=== PATIENT | female | born 1995 | race Caucasian/White ===

== ENCOUNTER → 2023-01-30 10:15 | Outpatient (BNVA) | payer MEDICAID, SELFPAY | PROVIDERS: Family Provider Family Medicine; Visit Provider Obstetrics & Gynecology | DX: Z00.00 Encounter for general adult medical examination without abnormal findings (principal) | CPT/HCPCS: 80053; 84443; 85025 ==

== ENCOUNTER → 2023-02-08 10:30 | Outpatient (BNVA) | payer MEDICAID, SELFPAY | PROVIDERS: Family Provider Family Medicine; Visit Provider Obstetrics & Gynecology | DX: Z01.419 Encounter for gynecological examination (general) (routine) without abnormal findings (principal) | CPT/HCPCS: 88175 ==

== ENCOUNTER 2024-03-06 01:26 | Inpatient (IN) | payer MEDICAID, SELFPAY ==
[2024-03-06] VITALS (15 sets, daily range): BP systolic 106–132; BP diastolic 58–82; PULSE 68–93; RESP 16; TEMP 36.4–36.8; O2SAT 97–98; BMI 27.6
--- NOTE | 2024-03-06 01:02 | P.HP_ITS ---
Providers/Chief Complaint Primary Care Provider: Rafal Atwood MD Chief Complaint: contractions HPI MEDICAL STAFF SERVICES MANAGER History of Present Illness Yuli Maldonado is a 29 year old female that presented at 40 weeks with rupture membranes. Patient states that she is jannte about every 3 to 5 minutes. Patient's initial evaluation showed 5 cm dilation which is a significant change from earlier today. Patient has had an uncomplicated . Patient is GBS unknown. Present Details : 3 Para: 2 Dating criteria OB: based on 1st trimester US only care: good care Ultrasounds: normal 1st trimester US and normal mid trimester US Obstetrical complications: none Medical complications OB: none Labs Blood type OB HPI: A (+) positive Rubella: Immune RPR: Negative GBS: Unknown HBsAG: Negative Review of Systems General: Reports: 10 or more systems reviewed and unremarkable except in HPI and below Medications/Allergies Home Medications Medication Instructions Recorded Confirmed Last Taken Type acetaminophen 325 mg tablet 325 mg PO QID PRN 10/19/20 02/08/23 Unknown History (Tylenol) albuterol sulfate 90 mcg/actuation 2 inh inhalation Q6H PRN 10/19/20 02/08/23 Unknown History breath activated powder inhaler Allergies Allergy/AdvReac Type Severity Reaction Status Date / Time No Known Allergies Allergy Verified 02/08/23 10:14 PFSH MEDICAL STAFF SERVICES MANAGER PFSH: Medical History (Reviewed 02/08/23 @ 10:15 by Ernestina Elkins [facility]) Pelvic pain Family History (Updated 01/30/23 @ 09:28 by Blanca Fernando) Grandmother Colon cancer Maternal Diabetes Great Grandmother/Maternal Mother Stroke Denies family history of Ovarian cancer Heart disease Breast cancer Hypertension Uterine cancer Thyroid disease Other Female Reproductive History: Hx Age of Menarche: 10 History History History 3 Term 2 0 Miscarriages/Ectopic 0 Living Children 2 Physical Exam Const: COMMON NORMALS: no acute distress, healthy appearing, alert and well nourished Resp: COMMON NORMALS: normal respiratory effort and No retractions Cardio: COMMON NORMALS: no JVD, regular rate and regular rhythm GI: OTHER: Gravid uterus Back/Pelvis: COMMON NORMALS: thoracic and lumbar spine normal to inspection Extremity: COMMON NORMALS: no clubbing, cyanosis or edema Neuro: COMMON NORMALS: moves all extremities, no focal motor deficits and no sensory deficits noted Psych: COMMON NORMALS: mental status grossly normal and cooperative Results Labs OB ([facility]): Hct 37.2 % (37.0-47.0) 01/30/23 Hgb 12.0 g/dL (11.5-15.3) 01/30/23 Plt Count 342 10^3/cmm (130-400) 01/30/23 TSH 2.31 uIU/mL (0.27-4.20) 01/30/23 Pap Smear Interpret See note A 02/08/23 A&P Assessment and plan (1) Term : Proceed with routine labor management. (2) 40 weeks gestation of : (3) Rupture of membranes with clear amniotic fluid: Attestations Medical Necessity Statement*: Patient admitted for rupture membranes and labor. Anticipate at least 1 midnight stay Coding Level of Care Code Acute Code for Chg Fwd Diagnoses Term Z34.90 40 weeks gestation of Z3A.40 Rupture of membranes with clear amniotic fluid
[2024-03-06 01:35] LABS: Basophils # 0.1 10^3/uL (0.0-0.1); Basophils % 0.6 %; Eosinophils # 0.2 10^3/uL (0.0-0.8); Eosinophils % 2.7 %; Hematocrit 37.1 % (36-47); Lymphocytes # 1.9 10^3/uL (0.8-4.8); Lymphocytes % 22.9 %; Mean Corpuscular Hemoglobin 30.7 pg (27-33); Mean Corpuscular Volume 90.5 fl (85-98); Mean Platelet Volume 9.6 fL (7.4-10.4); Monocytes # 0.7 10^3/uL (0.2-0.9); Monocytes % 8.7 %; Neutrophils # 5.47 10^3/uL (1.8-7.7); Neutrophils % 64.5 %; Nucleated Red Blood Cells % 0 %; Platelet Count 307 10^3/cmm (157-399); Red Cell Distribution Width 12.5 % (12.1-15.1); White Blood Count 8.48 10^3/uL (3.29-11.43)
--- NOTE | 2024-03-06 02:41 | PC.NURSE ---
Jodie MOTTA approached this nurse and stated that the pt refused Amp for unknown GBS status. Pt requesting to get in the shower at this time. Rn educated pt and SO that 2 doses of Amp are needed prior to delivery, if pt is unable to receive both doses of Amp it is likely they will be staying for 48 hours after delivery d/t the risk of infection for . Pt states she will start Amp when she is done in the shower.
[2024-03-06] MEDS: ampicillin 2,000 MG in sodium chloride 0.9% (plus) 50 ML 100 MG IV (02:58)
[2024-03-06] MEDS: dextrose 5%-lactated ringers 1,000 ML 125 ML IV (02:59)
--- NOTE | 2024-03-06 05:44 | PM.DELIVERY ---
Delivery Note: Date of delivery: March 06, 2024 Pre-delivery diagnoses: Term intrauterine , spontaneous rupture membranes. Post-delivery diagnoses: Same, viable male Procedure: Continuous vaginal delivery Delivering Physician: Dr. Jean Paul Osorio Estimated blood loss (mL): 150 Pre-Delivery Course: This is a 29-year-old G3, P3 that presented at 40 weeks with spontaneous rupture membranes that occurred at home. The patient was jannet well on her own and made steady progress overnight to complete dilation. Delivery: Once patient was completely dilated and he felt the urge to push, the patient was placed in the normal lithotomy position. Patient was pushing with contractions and delivered a viable male without difficulty. The was then placed on mother's abdomen and after delay the cord was clamped and cut. Placenta was then delivered soon after. Review of the perineum and vaginal vault demonstrated no significant tears. At the end the procedure the uterus was firm and bleeding was controlled. Post-Delivery Status: Stable History History History 3 Term 3 0 Miscarriages/Ectopic 0 Living Children 3 A&P Assessment and plan (1) Normal spontaneous vaginal delivery: Proceed with routine care. Coding Level of Care Code Acute Code for Chg Fwd Diagnoses Normal spontaneous vaginal delivery O80
[2024-03-06] MEDS: lanolin oint 7 gm 1 APPLIC TOPICAL (07:54)
[2024-03-06] MEDS: ibuprofen 800 mg tablet PO ×3 (07:54→21:01)
[2024-03-06] MEDS: benzocaine-menthol 78 gm Canister 1 SPRAY TOPICAL (07:55)
[2024-03-06] MEDS: docusate sodium 100 mg Capsule PO ×2 (07:55→21:00)
[2024-03-06 20:03] LABS: Mean Corpuscular HGB Conc 34.5 g/dL (30-55); Mean Corpuscular Hemoglobin 31.5 pg (27-33); Mean Corpuscular Volume 91.5 fl (85-98); Mean Platelet Volume 9.6 fL (7.4-10.4); Platelet Count 263 10^3/cmm (157-399); Red Blood Count 3.17 10^6/uL (3.85-5.65); Red Cell Distribution Width 12.7 % (12.1-15.1); White Blood Count 12.08 10^3/uL (3.29-11.43)
[2024-03-07 04:00] VITALS: BP 115/72; PULSE 69; RESP 18; TEMP 36.6; O2SAT 98
--- NOTE | 2024-03-07 07:32 | P.DS_ITS ---
Discharge Providers PRODUCT DEVELOPMENT CONSULTANT Date of Admission: 03/06/24 01:26 Date of Discharge: 03/07/24 Attending Provider at Admission: Barron Osorio MD Attending Provider at Discharge: Barron Osorio MD Primary Care Provider: Rafal Atwood MD Diagnoses at Discharge Discharge Diagnosis (1) Normal spontaneous vaginal delivery: Status: Acute Reason for Visit Reason for Visit: contractions Brief History: This is a 29-year-old G3, P3 that presented at 40 weeks gestational age with contractions and rupture of membranes. Hospital Course Hospital Course This is a 29-year-old G3, P3 that presented in active labor. The patient was found to be grossly ruptured and jannet every 2 to 3 minutes. The patient progressed as expected overnight. The patient delivered a viable infant male via spontaneous vaginal delivery without difficulty. The patient did decline oxytocin and was declining fundal checks and did have large blood clot during her care, otherwise no other significant bleeding. Patient's vital signs been stable. The patient is been ambulating and urinating without difficulty. No other concerns during her stay. Information Peripartum Data: Infant Delivery Method: Vaginal Laceration description: None Episiotomy description: None complications: none Physical Exam Const: COMMON NORMALS: no acute distress, healthy appearing, alert and well nourished Neck/C-Spine: COMMON NORMALS: no JVD Resp: COMMON NORMALS: normal respiratory effort and No retractions Cardio: COMMON NORMALS: no JVD, regular rate and regular rhythm RATE: regular rate RHYTHM: regular rhythm GI: OTHER: Uterus firm and below the umbilicus Back/Pelvis: COMMON NORMALS: thoracic and lumbar spine normal to inspection Extremity: COMMON NORMALS: no clubbing, cyanosis or edema Neuro: COMMON NORMALS: moves all extremities, no focal motor deficits and no sensory deficits noted SENSORIUM/ORIENTATION: Yes alert Psych: COMMON NORMALS: mental status grossly normal and cooperative History History History 3 Term 3 0 Miscarriages/Ectopic 0 Living Children 3 Discharge Data Studies Completed and Pending Laboratory Results WBC 12.08 10^3/uL (3.29-11.43) H 03/06/24 19:55 RBC 3.17 10^6/uL (3.85-5.65) L 03/06/24 19:55 Hgb 10.00 g/dL (11.27-16.99) L 03/06/24 19:55 Hct 29.0 % (36-47) L 03/06/24 19:55 MCV 91.5 fl (85-98) 03/06/24 19:55 MCH 31.5 pg (27-33) 03/06/24 19:55 MCHC 34.5 g/dL (30-55) 03/06/24 19:55 RDW 12.7 % (12.1-15.1) 03/06/24 19:55 Plt Count 263 10^3/cmm (157-399) 03/06/24 19:55 MPV 9.6 fL (7.4-10.4) 03/06/24 19:55 Neut % (Auto) 64.5 % 03/06/24 01:15 Lymph % (Auto) 22.9 % 03/06/24 01:15 Bullitt % (Auto) 8.7 % 03/06/24 01:15 Eos % (Auto) 2.7 % 03/06/24 01:15 Baso % (Auto) 0.6 % 03/06/24 01:15 Neut # (Auto) 5.47 10^3/uL (1.8-7.7) 03/06/24 01:15 Lymph # (Auto) 1.9 10^3/uL (0.8-4.8) 03/06/24 01:15 Bullitt # (Auto) 0.7 10^3/uL (0.2-0.9) 03/06/24 01:15 Eos # (Auto) 0.2 10^3/uL (0.0-0.8) 03/06/24 01:15 Baso # (Auto) 0.1 10^3/uL (0.0-0.1) 03/06/24 01:15 Nucleated RBC % (auto) 0 % 03/06/24 01:15 Nucleated RBCs # 0.0 /100WBC 03/06/24 01:15 Blood Type A Positive 03/06/24 01:15 Rho(D) Type Rh positive 03/06/24 01:15 Antibody Screen Negative 03/06/24 01:15 Vitals Last Vital Signs Temp 98 F 03/07/24 04:00 Pulse 69 03/07/24 04:00 Resp 18 03/07/24 04:00 BP 115/72 03/07/24 04:00 Pulse Ox 98 03/07/24 04:00 O2 Del Method Room Air 03/07/24 04:00 Results Labs OB ([facility]): Blood Type A Positive 03/06/24 Antibody Screen Negative 03/06/24 Hct 29.0 % (36-47) L 03/06/24 Hgb 10.00 g/dL (11.27-16.99) L 03/06/24 Rho(D) Type Rh positive 03/06/24 Plt Count 263 10^3/cmm (157-399) 03/06/24 TSH 2.31 uIU/mL (0.27-4.20) 01/30/23 Pap Smear Interpret See note A 02/08/23 Discharge Plan Discharge Patient Disposition: Home Condition: Stable Prescriptions: Continued albuterol sulfate 90 mcg/actuation aerosol powdr breath activated 2 inh inhalation Q6H PRN (Reason: Bronchodilation) acetaminophen [Tylenol] 325 mg tablet 325 mg PO QID PRN (Reason: Pain) Discharge Orders: Discharge Order (Routine); Ordered 03/07/24 Ordered By: Barron Osorio Referrals: Barron Osorio MD [Physician] - 6 Weeks Discharge Diet: Usual diet Discharge Activity: Limit activity as instructed Patient Instructions: Opioid Safety Discharge Attestations PRODUCT DEVELOPMENT CONSULTANT Time Spent in Discharge Care*: less than 30 min Coding Level of Care Code Acute Code for Chg Fwd Diagnoses Normal spontaneous vaginal delivery O80
[2024-03-07] MEDS: docusate sodium 100 mg Capsule PO (09:52)
[2024-03-07 10:00] VITALS: BP 105/69; PULSE 78; RESP 16; TEMP 36.7; O2SAT 98
[2024-03-07 10:45] VITALS: BP 105/69; PULSE 78; RESP 16; TEMP 36.7; O2SAT 98
== END 2024-03-07 10:45 | disposition home or self-care (01) | DRG 807 ==
LOC: OPOB 02:34 → OBGYN 02:34
PROVIDERS: Admitting Provider Family Medicine; PCP Family Medicine; Visit Provider Family Medicine
DX: O80 Encounter for full-term uncomplicated delivery (principal); Z37.0 Single live birth; Z3A.40 40 weeks gestation of pregnancy
CPT/HCPCS: 36415; 59025; 59409; 83986; 85025; 85027; 86850; 86900; 99211; J0290; J7121